=== PATIENT | female | born 1990 | race American Indian/Alaskan Native ===

== ENCOUNTER 2016-09-21 09:41 | Emergency (ER) | payer MEDICAID ==
[2016-09-21 09:42] VITALS: BMI 29.2
[2016-09-21 09:57] VITALS: BP 110/67; RESP 18; TEMP 99
--- NOTE | 2016-09-21 10:44 | ED PDOC ---
Arrival/HPI - General Chief Complaint: Breast Problem Time Seen by Provider: 09/21/16 10:14 Historian: Patient - History of Present Illness Narrative History of Present Illness (Text): 09/21/16 10:55 26-year-old female presents today with a 2 to three-week history of right sided breast lump. Patient states she noticed a gradually increasing lump to the right breast. Patient states she tried to stick a needle in it to drain it. Patient states she is having minimal pain. She denies fevers or chills. She denies any nipple discharge. Patient states she is worried because both her aunts and her grandmother on her mother's side were diagnosed with breast cancer one of them was diagnosed with breast cancer at the age of 30. Past Medical History - Provider Review Nursing Documentation Reviewed: Yes - Past History Past History: No Previous - Infectious Disease Hx of Infectious Diseases: None - Reproductive Menopause: No - Past Medical History Past Medical History: No Previous - Cardiac Hx Cardiac Disorders: No - Pulmonary Hx Respiratory Disorders: No - Neurological Hx Neurological Disorder: No - HEENT Hx HEENT Disorder: No - Renal Hx Renal Disorder: No - Endocrine/Metabolic Hx Endocrine Disorders: No - Hematological/Oncological Hx Blood Disorders: No - Integumentary Hx Dermatological Disorder: No - Musculoskeletal/Rheumatological Hx Musculoskeletal Disorders: No - Gastrointestinal Hx Gastritis: Yes - Genitourinary/Gynecological Hx Genitourinary Disorders: No - Psychiatric Hx Psychophysiologic Disorder: No Hx Anxiety: No Hx Bipolar Disorder: No Hx Depression: No Hx Emotional Abuse: No Hx Hallucinations: No Hx Panic Disorder: No Hx Post Traumatic Stress Disorder: No Hx Psychosis: No Hx Physical Abuse: No Hx Schizophrenia: No Hx Sexual Abuse: No Hx Substance Use: No - Past Surgical History Past Surgical History: No Previous - Anesthesia Hx Anesthesia: No Hx Anesthesia Reactions: No Hx Malignant Hyperthermia: No - Suicidal Assessment Feels Threatened In Home Enviroment: No Family/Social History - Physician Review Nursing Documentation Reviewed: Yes Family/Social History: Neoplasm/Cancer (BREAST CANCER; MOTHERS SISTER, GRANDMOTHER ON MOTHERS SIDE) Smoking Status: Never Smoked Hx Alcohol Use: No Hx Substance Use: No Hx Substance Use Treatment: No Allergies/Home Meds Allergies/Adverse Reactions: Allergies No Known Allergies Allergy (Verified 06/29/16 19:36) Review of Systems - Review of Systems Constitutional: absent: Fatigue, Fevers Respiratory: absent: SOB, Cough Cardiovascular: absent: Chest Pain, Palpitations Gastrointestinal: absent: Abdominal Pain, Nausea, Vomiting Genitourinary Female: Other (Right breast lump/abscess). absent: Dysuria, Frequency, Hematuria Musculoskeletal: absent: Arthralgias Skin: absent: Rash, Pruritis Neurological: absent: Headache, Dizziness Physical Exam Vital Signs Reviewed: Yes Vital Signs Temp Pulse Resp BP Pulse Ox 09/21/16 09:54 99 F 102 H 18 110/67 99 Temperature: Afebrile Blood Pressure: Normal Pulse: Tachycardic Respiratory Rate: Normal Appearance: Positive for: Well-Appearing, Non-Toxic, Comfortable Pain Distress: None Mental Status: Positive for: Alert and Oriented X 3 - Systems Exam Head: Present: Atraumatic Respiratory/Chest: Present: Clear to Auscultation Cardiovascular: Present: Regular Rate and Rhythm Breast/Axillary: Present: Erythema, Masses, Symmetrical, Tender to Palpation ( Right breast: At the upper outer quadrant of the breast at the areola there is a quarter-sized round and minimally tender nonfluctuant lump with slight erythema. No nipple discharge. ). No: Discoloration, Fluctuance, Nipple Discharge, Swelling Neurological: Present: GCS=15, Speech Normal Skin: Present: Warm, Dry Psychiatric: Present: Alert, Oriented x 3 Medical Decision Making ED Course and Treatment: 09/21/16 10:58 26-year-old female with a 2 to three-week history of right breast lump. Patient with a strong family history of breast cancer. There is slight erythema noted over the small lump. No fluctuance. Will treat for possible abscess. I stressed the importance of following up with the breast specialist. Advised the patient that she will need ultrasound and mammogram. Patient states she has to go to work at this point and will take the prescriptions and follow-up. I stressed immediate return if symptoms worsen persist or if new concerning symptoms develop, and high fevers, increasing pain, increasing redness, increasing swelling. I stressed the importance of follow-up with a specialist due to the significant breast cancer history. Patient verbalizes understanding of discharge instructions and need for immediate followup. Impression: Breast lump, abscess motrin every 6 hours as needed for pain bactrim 1 tablet twice daily x 7 days kelfex; 1 capsule 4 times daily x 7 days Follow up with the breast specialist within the next 2 days Follow up with the surgeon within the next 2 days Follow up with the STUDENT SERVICES COORDINATOR within the next 2 days IT IS VERY IMPORTANT THAT YOU SEE A SPECIALIST FOR THIS BREAST LUMP; YOU WILL NEED AN ULTRASOUND AND POSSIBLE MAMMOGRAM BASED ON YOUR FAMILY HISTORY. RETURN IMMEDIATELY IF SYMPTOMS WORSEN,PERSIST OR IF NEW SYMPTOMS DEVELOP; HIGH FEVERS, INCREASING PAIN, INCREASING REDNESS, SWELLING OR PURULENT DISCHARGE. Disposition/Present on Arrival - Present on Arrival Any Indicators Present on Arrival: No History of DVT/PE: No History of Uncontrolled Diabetes: No Urinary Catheter: No History of Decub. Ulcer: No History Surgical Site Infection Following: None - Disposition Have Diagnosis and Disposition been Completed?: Yes Diagnosis: Breast lump, Abscess Disposition: HOME/ ROUTINE Disposition Time: 10:37 Patient Plan: Discharge Condition: GOOD Additional Instructions: motrin every 6 hours as needed for pain bactrim 1 tablet twice daily x 7 days kelfex; 1 capsule 4 times daily x 7 days Follow up with the breast specialist within the next 2 days Follow up with the surgeon within the next 2 days Follow up with the STUDENT SERVICES COORDINATOR within the next 2 days IT IS VERY IMPORTANT THAT YOU SEE A SPECIALIST FOR THIS BREAST LUMP; YOU WILL NEED AN ULTRASOUND AND POSSIBLE MAMMOGRAM BASED ON YOUR FAMILY HISTORY. RETURN IMMEDIATELY IF SYMPTOMS WORSEN,PERSIST OR IF NEW SYMPTOMS DEVELOP; HIGH FEVERS, INCREASING PAIN, INCREASING REDNESS, SWELLING OR PURULENT DISCHARGE. Prescriptions: Sulfamethoxazole/Trimethoprim [Bactrim DS 800 mg-160 mg] 1 tab PO BID #14 tab Cephalexin [Keflex] 500 mg PO QID #28 capsule Ibuprofen [Motrin] 600 mg PO Q6H PRN #20 tab PRN Reason: pain/fever reduction Referrals: Sergey Kiran MD [Staff Provider] - Follow up with primary Abdon Ag MD [Staff Provider] - Follow up with primary Alejandra Bella MD [Medical Doctor] - Follow up with primary Luz Hansen MD [Staff Provider] - Follow up with primary
[2016-09-21 10:52] VITALS: PULSE 87; O2SAT 100
== END 2016-09-21 10:55 | disposition home or self-care (01) ==
LOC: ED 09:41
DX: N63 Unspecified lump in breast (principal); N61.1 Abscess of the breast and nipple

== ENCOUNTER 2017-03-02 14:20 | Emergency (ER) | payer MEDICAID, OTHER ==
[2017-03-02 14:32] VITALS: BP 107/63; PULSE 98; RESP 17; TEMP 97.6; O2SAT 97; BMI 28.3
--- NOTE | 2017-03-02 15:00 | ED PDOC ---
Arrival/HPI - General Chief Complaint: Finger,Hand,&Wrist Time Seen by Provider: 03/02/17 14:34 Historian: Patient - History of Present Illness Narrative History of Present Illness (Text): 03/02/17 14:56 26yr old female presents today with right thumb injury. pt states prior to arrival she closed her thumb in the car door. pt c/o throbbing sensation to thumb with limited rom. no medications taken for pain at home. no fever/chills. denies numbness, tingling in the extremity. no other complaints. Time/Duration: Prior to Arrival Quality: Throbbing Severity Level: 6 Past Medical History - Provider Review Nursing Documentation Reviewed: Yes - Travel History Have you recently traveled outside [place] w/in the past 3 mons?: No - Past History Past History: No Previous - Infectious Disease Hx of Infectious Diseases: None - Tetanus Immunization Tetanus Immunization: Unknown - Past Medical History Past Medical History: No Previous - Cardiac Hx Cardiac Disorders: Yes Hx Hypertension: Yes - Pulmonary Hx Respiratory Disorders: No - Neurological Hx Neurological Disorder: No - HEENT Hx HEENT Disorder: No - Renal Hx Renal Disorder: No - Endocrine/Metabolic Hx Endocrine Disorders: No - Hematological/Oncological Hx Blood Disorders: No - Integumentary Hx Dermatological Disorder: No - Musculoskeletal/Rheumatological Hx Musculoskeletal Disorders: No - Gastrointestinal Hx Gastritis: Yes - Genitourinary/Gynecological Hx Genitourinary Disorders: No - Psychiatric Hx Psychophysiologic Disorder: No Hx Anxiety: No Hx Bipolar Disorder: No Hx Depression: No Hx Emotional Abuse: No Hx Hallucinations: No Hx Panic Disorder: No Hx Post Traumatic Stress Disorder: No Hx Psychosis: No Hx Physical Abuse: No Hx Schizophrenia: No Hx Sexual Abuse: No Hx Substance Use: No - Past Surgical History Past Surgical History: No Previous - Anesthesia Hx Anesthesia: No Hx Anesthesia Reactions: No Hx Malignant Hyperthermia: No - Suicidal Assessment Feels Threatened In Home Enviroment: No Family/Social History - Physician Review Nursing Documentation Reviewed: Yes Family/Social History: Unknown Family HX Smoking Status: Never Smoked Hx Alcohol Use: No Hx Substance Use: No Hx Substance Use Treatment: No Allergies/Home Meds Allergies/Adverse Reactions: Allergies shrimp Allergy (Verified 03/02/17 15:05) ANAPHYLAXIS Review of Systems - Review of Systems Constitutional: absent: Fatigue, Fevers Respiratory: absent: SOB, Cough Cardiovascular: absent: Chest Pain, Palpitations Gastrointestinal: absent: Abdominal Pain, Nausea, Vomiting Genitourinary Female: absent: Dysuria Musculoskeletal: Arthralgias. absent: Back Pain, Neck Pain Skin: absent: Rash, Pruritis Neurological: absent: Headache, Dizziness Psychiatric: absent: Anxiety, Depression Physical Exam Vital Signs Reviewed: Yes Vital Signs Temp Pulse Resp BP Pulse Ox 03/02/17 14:31 97.6 F 98 H 17 107/63 97 Temperature: Afebrile Blood Pressure: Normal Pulse: Regular Respiratory Rate: Normal Appearance: Positive for: Well-Appearing, Non-Toxic, Comfortable Pain Distress: None Mental Status: Positive for: Alert and Oriented X 3 - Systems Exam Head: Present: Atraumatic Mouth: Present: Moist Mucous Membranes Neck: Present: Normal Range of Motion Respiratory/Chest: Present: Clear to Auscultation, Good Air Exchange. No: Respiratory Distress, Accessory Muscle Use Cardiovascular: Present: Regular Rate and Rhythm, Normal S1, S2. No: Murmurs Upper Extremity: Present: NORMAL PULSES, Tenderness (right thumb; + ttp over proximal phalanx of thumb; + edema; limited flexion; sensation and distal pulses intact; + ecchymosis noted to pulp of thumb; ), Swelling, Neurovascularly Intact, Capillary Refill < 2s. No: Normal ROM, Erythema, Deformity Neurological: Present: GCS=15 Skin: Present: Warm, Dry Psychiatric: Present: Alert, Oriented x 3 Medical Decision Making ED Course and Treatment: 03/02/17 15:02 Patient nontoxic well-appearing in no distress with stable vital signs X-rays of the right thumb; no fracture motrin po Patient placed in finger splint I discussed all results with patient advised to followup with the orthopedist for the next 2 days. Return if symptoms worsen persist or new symptoms develop Patient verbalizes understanding of discharge instructions and need for immediate followup. Impression: Motrin every 6 hours as needed for pain Rest, ice, compression, elevation Followup with the orthopedist within the next 2 days Followup with primary care physician within the next 2 days Return if any other concerning symptoms develop 03/02/17 15:15 - RAD Interpretation Radiology Orders: 03/02/17 14:34 HAND RIGHT THUMB [RAD] Stat - Medication Orders Current Medication Orders: Discontinued Medications Ketorolac Tromethamine (Toradol) 30 mg IM STAT STA Stop: 03/02/17 14:35 Last Admin: 03/02/17 14:53 Dose: 30 mg Comments: not scanning MAR Pain Assessment Document 03/02/17 14:53 SE (Rec: 03/02/17 14:54 SE [id number]) Pain Reassessment Is this a pain reassessment? No Sleep Is patient sleeping during reassessment? No Presence of Pain Presence of Pain Yes Pain Scale Used Pain Scale Used Numeric Location Left, Right or Bilateral Right Pain Location Body Site Thumb IM Administration Charges Document 03/02/17 14:53 SE (Rec: 03/02/17 14:54 SE [id number]) Injection Site MAR Injection Site Right Arm Charges for Administration # of IM Administrations 1 Disposition/Present on Arrival - Present on Arrival Any Indicators Present on Arrival: No History of DVT/PE: No History of Uncontrolled Diabetes: No Urinary Catheter: No History of Decub. Ulcer: No History Surgical Site Infection Following: None - Disposition Have Diagnosis and Disposition been Completed?: Yes Diagnosis: Finger contusion Disposition: HOME/ ROUTINE Disposition Time: 15:17 Patient Plan: Discharge Condition: GOOD Discharge Instructions (ExitCare): Crush Injury (ED) Additional Instructions: Motrin every 6 hours as needed for pain Rest, ice, compression, elevation Followup with the orthopedist within the next 2 days Followup with primary care physician within the next 2 days Return if any other concerning symptoms develop Prescriptions: Ibuprofen [Motrin] 600 mg PO Q6H PRN #20 tab PRN Reason: pain/fever reduction Referrals: Maik Eagle DO [Staff Provider] - Follow up with primary Dewayne Redman DO [Staff Provider] - Follow up with primary Yeni Green MD [Non-Staff] - Follow up with primary Forms: [employer] (Malaysian), WORK NOTE
--- NOTE | 2017-03-02 15:47 | RAD ---
PROCEDURE: Right Thumb radiographs. HISTORY: Right thumb injury; closed in door COMPARISON: None. TECHNIQUE: AP radiograph of the right hand, as well as spot oblique and lateral images of thumb were obtained. FINDINGS: RIGHT THUMB: There is no acute displaced fracture in the right thumb or focal lesion. Remainder of the right hand (as seen on the AP view) grossly unremarkable. JOINTS: Normal. SOFT TISSUES: Normal. OTHER FINDINGS: None. IMPRESSION: No acute fracture or dislocation.
== END 2017-03-02 16:17 | disposition home or self-care (01) ==
LOC: ED 14:20
DX: I10 Essential (primary) hypertension (principal); S60.011A Contusion of right thumb without damage to nail, initial encounter; W23.0XXA Caught, crushed, jammed, or pinched between moving objects, initial encounter; Y93.89 Activity, other specified; Y92.89 Other specified places as the place of occurrence of the external cause
CPT/HCPCS: 73140; 96372; 99284; J1885

== ENCOUNTER 2017-05-02 15:58 | Emergency (ER) | payer MEDICAID, OTHER ==
[2017-05-02 15:59] VITALS: BMI 28.3
[2017-05-02 16:11] VITALS: TEMP 98.9
--- NOTE | 2017-05-02 16:36 | ED PDOC ---
Arrival/HPI - General Chief Complaint: Back Pain Time Seen by Provider: 05/02/17 16:30 Historian: Patient - History of Present Illness Narrative History of Present Illness (Text): 05/02/17 16:30 Patient is not in her room yet 05/02/17 16:55 This 26 yo female with pmh sciatica, presents to this ED c/o left lower back pain x 7 days. Patient stated her left calf is painful, and mild swelling. Patient denies sob, cp, abdominal pain, skin rash, weakness, paresthesias, GI/ incontinence, saddle anesthesias, urinary retention, or urinary symptoms. LMP: Now Time/Duration: 1 week Quality: Aching Context: Home Past Medical History - Provider Review Nursing Documentation Reviewed: Yes - Past History Past History: No Previous - Infectious Disease Hx of Infectious Diseases: None - Tetanus Immunization Tetanus Immunization: Unknown - Past Medical History Past Medical History: No Previous - Cardiac Hx Cardiac Disorders: Yes Hx Hypertension: Yes (controlled) - Pulmonary Hx Respiratory Disorders: No - Neurological Hx Neurological Disorder: No - HEENT Hx HEENT Disorder: No - Renal Hx Renal Disorder: No - Endocrine/Metabolic Hx Endocrine Disorders: No - Hematological/Oncological Hx Blood Disorders: No - Integumentary Hx Dermatological Disorder: No - Musculoskeletal/Rheumatological Hx Musculoskeletal Disorders: No - Gastrointestinal Hx Gastritis: Yes - Genitourinary/Gynecological Hx Genitourinary Disorders: No - Psychiatric Hx Psychophysiologic Disorder: No Hx Anxiety: No Hx Bipolar Disorder: No Hx Depression: No Hx Emotional Abuse: No Hx Hallucinations: No Hx Panic Disorder: No Hx Post Traumatic Stress Disorder: No Hx Psychosis: No Hx Physical Abuse: No Hx Schizophrenia: No Hx Sexual Abuse: No Hx Substance Use: No - Past Surgical History Past Surgical History: No Previous - Anesthesia Hx Anesthesia: No Hx Anesthesia Reactions: No Hx Malignant Hyperthermia: No - Suicidal Assessment Feels Threatened In Home Enviroment: No Family/Social History - Physician Review Nursing Documentation Reviewed: Yes Family/Social History: Other (noncontributory) Smoking Status: Never Smoked Hx Alcohol Use: No Hx Substance Use: No Hx Substance Use Treatment: No Allergies/Home Meds Allergies/Adverse Reactions: Allergies shrimp Allergy (Verified 05/02/17 16:11) ANAPHYLAXIS Review of Systems - Review of Systems Constitutional: Normal. absent: Fatigue, Weight Change, Fevers Eyes: Normal ENT: Normal Respiratory: Normal. absent: SOB, Cough, Sputum Cardiovascular: Normal. absent: Chest Pain Gastrointestinal: Normal. absent: Abdominal Pain, Nausea, Vomiting Genitourinary Female: Normal. absent: Dysuria, Frequency, Hematuria Musculoskeletal: Back Pain, Other (left calf pain). absent: Neck Pain, Myalgias Skin: Normal. absent: Rash Neurological: Normal Endocrine: Normal Hemo/Lymphatic: Normal Psychiatric: Normal Physical Exam Vital Signs Temp Pulse Resp BP Pulse Ox 05/02/17 19:13 87 17 131/80 100 05/02/17 16:08 98.9 F 93 H 18 108/77 98 Temperature: Afebrile Blood Pressure: Normal Pulse: Regular Respiratory Rate: Normal Appearance: Positive for: Well-Appearing, Non-Toxic, Comfortable Pain Distress: None Mental Status: Positive for: Alert and Oriented X 3 - Systems Exam Head: Present: Atraumatic, Normocephalic Pupils: Present: PERRL Extroacular Muscles: Present: EOMI Conjunctiva: Present: Normal Mouth: Present: Moist Mucous Membranes Neck: Present: Normal Range of Motion Respiratory/Chest: Present: Clear to Auscultation, Good Air Exchange. No: Respiratory Distress, Accessory Muscle Use Cardiovascular: Present: Regular Rate and Rhythm, Normal S1, S2. No: Murmurs Abdomen: Present: Normal Bowel Sounds. No: Tenderness, Distention, Peritoneal Signs Back: Present: Normal Inspection Upper Extremity: Present: Normal Inspection, Normal ROM, NORMAL PULSES, Neurovascularly Intact, Capillary Refill < 2s. No: Cyanosis, Edema Lower Extremity: Present: Normal Inspection, CALF TENDERNESS (very mild calf tenderness), NORMAL PULSES, Normal ROM, Neurovascularly Intact, Capillary Refill < 2 s. No: Edema, Cyanosis, Tennille's Sign, Tenderness, Swelling, Erythema , Temperature Abnormalties Neurological: Present: GCS=15, CN II-XII Intact, Speech Normal, Motor Func Grossly Intact, Normal Sensory Function, Normal Cerebellar Funct, Gait Normal Skin: Present: Warm, Dry, Normal Color. No: Rashes Psychiatric: Present: Alert, Oriented x 3, Normal Insight, Normal Concentration Medical Decision Making ED Course and Treatment: 05/02/17 18:55 Re-evaluation. Patient feels better. Discussed results and plan with patient who expresses understanding. All questions answered and there is agreement with the plan to discharge home with instructions. Patient stable for discharge. Return if symptoms persist or worsen. Re-evaluation Time: 18:55 Reassessment Condition: Re-examined, Improved - Lab Interpretations Microbiology Results: Microbiology Results 05/02/17 21:00 Urine,Clean Catch Urine Culture - Final No Growth (<1,000 CFU/ML) Lab Results: Lab Results 05/02/17 17:20: Urine Color Yellow, Urine Appearance Sl cloudy, Urine pH 6.5, Ur Specific Humphrey 1.025, Urine Protein 30 H, Urine Glucose (UA) Negative, Urine Ketones Trace H, Urine Blood Large H, Urine Nitrate Negative, Urine Bilirubin Negative, Urine Urobilinogen 0.2, Ur Leukocyte Esterase Negative, Urine RBC 5 - 10, Urine WBC 10 - 15, Ur Epithelial Cells 6 - 8, Urine Bacteria Mod I have reviewed the lab results: Yes Interpretation: No clinic. lab abnormalty - RAD Interpretation Narrative RAD Interpretations (Text): 05/02/17 18:55 Venous Doppler Lower Extremity: No DVT as per US Radiology Orders: 05/02/17 17:03 DUPLEX LOWER EXTRM VEIN LEFT [US] Stat - Medication Orders Current Medication Orders: Discontinued Medications Cephalexin Monohydrate (Keflex) 500 mg PO STAT STA PRN Reason: Protocol Stop: 05/02/17 18:17 Last Admin: 05/02/17 18:42 Dose: 500 mg Cyclobenzaprine HCl (Flexeril) 10 mg PO STAT STA Stop: 05/02/17 17:04 Last Admin: 05/02/17 17:21 Dose: 10 mg Disposition/Present on Arrival - Present on Arrival Any Indicators Present on Arrival: No History of DVT/PE: No History of Uncontrolled Diabetes: No Urinary Catheter: No History of Decub. Ulcer: No History Surgical Site Infection Following: None - Disposition Have Diagnosis and Disposition been Completed?: Yes Diagnosis: Back pain, Urinary tract infection Disposition: HOME/ ROUTINE Disposition Time: 18:56 Patient Plan: Discharge Condition: GOOD Discharge Instructions (ExitCare): Urinary Tract Infection in Women (ED) Additional Instructions: Call private doctor for follow up visit in 1-2 days. Take medication as instructed with food. Return to emergency if symptoms worsen. Do not drive or operate machinery for at least 10 hours after taking Flexeril Prescriptions: Cephalexin [Keflex] 500 mg PO BID #14 capsule Cyclobenzaprine [Cyclobenzaprine HCl] 10 mg PO BID #14 tab Famotidine [Pepcid] 40 mg PO DAILY #10 tablet Naproxen 500 mg PO BID PRN #10 tab PRN Reason: Pain, Severe (8-10) Referrals: [facility], [Non-Staff] - Follow up with primary Forms: [employer] ([place]ian), WORK NOTE
[2017-05-02 17:30] LABS: PH,URINE 6.5 (4.7-8.0); URINE BILIRUBIN NEGATIVE (NEGATIVE); URINE BLOOD LARGE (NEGATIVE); URINE GLUCOSE (UA) NEGATIVE (NEGATIVE); URINE KETONE TRACE mg/dL (NEGATIVE); URINE LEUKOCYTE ESTERASE NEGATIVE Leu/uL (NEGATIVE); URINE PROTEIN 30 mg/dL (<30 mg/dL); URINE UROBILINOGEN 0.2 E.U./dL (<1 E.U./dL)
[2017-05-02 17:43] LABS: URINE APPEARANCE SL CLOUDY (CLEAR); URINE COLOR YELLOW (YELLOW)
[2017-05-02 18:02] LABS: URINE BACTERIA MOD (NEG)
[2017-05-02 19:15] VITALS: BP 131/80; PULSE 87; RESP 17; O2SAT 100
--- NOTE | 2017-05-03 08:44 | US ---
PROCEDURE: Left lower extremity venous US HISTORY: Leg pain and swelling. Evaluate for DVT. PHYSICIAN(S): Twan Stroud MD. TECHNIQUE: Duplex sonography and color-flow Doppler with graded compression were used to evaluate the deep venous system of the left lower extremity. FINDINGS: The visualized deep venous system of the left lower extremity is sonographically normal and compressible. Normal wave forms and augmentation are seen. There is no sonographic evidence for deep venous thrombosis in the visualized segments of the left lower extremity. There is a 1 x 1.2 cm mass in subcutaneous tissues left calf posteriorly. The differential includes lipoma. However, the mass is not echogenic. IMPRESSION: 1. No sonographic evidence for deep venous thrombosis in the visualized segments of the left lower extremity.
== END 2017-05-02 19:13 | disposition home or self-care (01) ==
LOC: ED 15:58
DX: N39.0 Urinary tract infection, site not specified (principal); M54.5 Low back pain; I10 Essential (primary) hypertension